=== PATIENT | female | born 1985 ===

== ENCOUNTER 2022-02-13 13:00 | Inpatient (IN) | payer OTHER ==
[~2022-02-13] VITALS: Ht 175.3 cm; Wt 108.0 kg
[2022-03-03] MEDS ORDERED: FOLIC ACID20 MG (22:26)
[2022-03-03] MEDS ORDERED: PRENATAL TABLE1 EAC1 (22:26)
== END 2022-03-06 18:20 | disposition home or self-care (01) | DRG 807 ==
LOC: OB/GYN 02-27 13:00 → LDR 03-03 22:05 → OB/GYN 03-04 16:20
PROVIDERS: ADMIT Obstetrics & Gynecology; ATTEND Obstetrics & Gynecology
PROC: 10E0XZZ Delivery of Products of Conception, External Approach (ICD-10-PCS; principal; 2022-03-03)
PROC: 0HQ9XZZ Repair Perineum Skin, External Approach (ICD-10-PCS; 2022-03-03)
PROC: 4A1HXCZ Monitoring of Products of Conception, Cardiac Rate, External Approach (ICD-10-PCS; 2022-03-03)
DX: O70.0 First degree perineal laceration during delivery (principal); Z37.0 Single live birth; Z3A.40 40 weeks gestation of pregnancy; Z20.822 Contact with and (suspected) exposure to COVID-19